=== PATIENT | female | born 1995 | race American Indian/Alaskan Native ===

== ENCOUNTER 2021-03-28 08:44 | Outpatient (CLI) | payer OTHER ==
[2021-03-28 09:17] VITALS: BP 132/59
--- NOTE | 2021-03-28 12:31 | Ultrasound Report ---
ULTRASOUND OBSTETRIC LIMITED ULTRASOUND BIOPHYSICAL PROFILE INDICATION / CLINICAL INFORMATION: 40.5 WEEKS GESTATION, BPP.. COMPARISON: None available. FINDINGS: BREATHING MOVEMENT = 2 GROSS BODY MOVEMENT = 2 TONE = 2 QUALITATIVE AMNIOTIC FLUID VOLUME = 2 TOTAL BIOPHYSICAL SCORE = 8/8 AMNIOTIC FLUID INDEX (cm) = 6.4 PRESENTATION: Cephalic. HEART RATE (beats per minute): 151 ADDITIONAL FINDINGS: None. IMPRESSION: 1. Biophysical Score = 8/8 2. Decreased SIMA of 6.4 cm. Signer Name: Chalo Slaughter MD Signed: 03/28/2021 12:26 PM Workstation Name: [id number]
== END 2021-03-28 11:21 | disposition home or self-care (01) ==
LOC: TRG 08:44 → APU 08:46 → TRG 11:21
PROVIDERS: ATTEND Obstetrics & Gynecology
DX: Z34.93 Encounter for supervision of normal pregnancy, unspecified, third trimester (principal); Z3A.40 40 weeks gestation of pregnancy
CPT/HCPCS: 59025; 76815; 76819